=== PATIENT | male | born 1985 | race Two or more races ===

== ENCOUNTER 2021-04-21 09:35 | Emergency (ER) | payer MEDICAID ==
[~2021-04-21] VITALS: Ht 180.3 cm; Wt 2.6 kg
[2021-04-21 09:39] VITALS: BP 148/94
--- NOTE | 2021-04-21 09:48 | NUR ---
PATIENT ASKED TO STAY TO SEE MD BUT OPTED TO GO TO [facility] INSTEAD.
== END 2021-04-21 09:51 | disposition left against medical advice (07) ==
LOC: ER 09:37
DX: Z53.21 Procedure and treatment not carried out due to patient leaving prior to being seen by health care provider (principal); J45.909 Unspecified asthma, uncomplicated; Z88.0 Allergy status to penicillin